=== PATIENT | male | born 1960 | race Caucasian/White ===

== ENCOUNTER 2020-10-21 07:48 | Outpatient (REF) | payer OTHER, SELFPAY ==
[2020-10-21 11:34] LABS: Estimated Average Glucose 163 mg/dL; Hemoglobin A1c % 7.3 %
[2020-10-21 11:51] LABS: Creatinine Urine 92.79 mg/dL; Microalbum/Creatinine Ratio Ur 7.5 ug/mg cr
[2020-10-21 12:14] LABS: Alanine Aminotransferase 27 U/L (0-40); Albumin Level 4.2 g/dL (3.5-5.0); Alkaline Phosphatase 40 U/L (39-117); Anion Gap 12 (12-20); Aspartate Amino Transferase 17 U/L (5-37); Bilirubin Total 0.8 mg/dL (0.0-1.0); Blood Urea Nitrogen 16 mg/dL (9-16); Calcium 8.8 mg/dL (8.4-10.2); Carbon Dioxide 27 mmol/L (22-29); Chloride 102 mmol/L (96-108); Cholesterol 128 mg/dL; Estimated Glomerular Filt Rate > 60; Glucose Fasting 156 mg/dL (60-99); HDL Cholesterol 53 mg/dL; LDL Cholesterol Calculated 61 mg/dl; Sodium 137 mmol/L (135-145); Total Protein 6.4 g/dL (6.5-8.0); Triglycerides 74 mg/dL
== END 2020-10-21 07:49 | disposition home or self-care (01) ==
LOC: HO.MANLDS 07:48
PROVIDERS: PCP Internal Medicine; Visit Provider Internal Medicine
DX: E11.9 Type 2 diabetes mellitus without complications (principal)
CPT/HCPCS: 36415; 80053; 80061; 82043; 83036

== ENCOUNTER 2021-01-31 08:28 | Outpatient (REF) | payer OTHER, SELFPAY ==
[2021-01-31 11:23] LABS: Estimated Average Glucose 157 mg/dL; Hemoglobin A1c % 7.1 %
== END 2021-01-31 08:29 | disposition home or self-care (01) ==
LOC: HO.MANLDS 08:28
PROVIDERS: PCP Internal Medicine; Visit Provider Internal Medicine
DX: E11.9 Type 2 diabetes mellitus without complications (principal)
CPT/HCPCS: 36415; 83036

== ENCOUNTER 2021-05-06 09:02 | Outpatient (REF) | payer OTHER, SELFPAY ==
[2021-05-06 11:15] LABS: Estimated Average Glucose 154 mg/dL
== END 2021-05-06 09:03 | disposition home or self-care (01) ==
LOC: HO.MANLDS 09:02
PROVIDERS: PCP Internal Medicine; Visit Provider Internal Medicine
DX: E11.9 Type 2 diabetes mellitus without complications (principal)
CPT/HCPCS: 36415; 83036

== ENCOUNTER 2021-11-10 08:16 | Outpatient (REF) | payer OTHER, SELFPAY ==
[2021-11-10 11:20] LABS: Cholesterol 114 mg/dL; Estimated Average Glucose 151 mg/dL; HDL Cholesterol 42 mg/dL; Hemoglobin A1c % 6.9 %; LDL Cholesterol Calculated 60 mg/dl; Triglycerides 62 mg/dL
[2021-11-10 11:36] LABS: Creatinine Urine 104.24 mg/dL
[2021-11-10 11:38] LABS: Microalbum/Creatinine Ratio Ur 12.4 ug/mg cr
== END 2021-11-10 08:17 | disposition home or self-care (01) ==
LOC: HO.MANLDS 08:16
PROVIDERS: PCP Internal Medicine; Visit Provider Internal Medicine
DX: E11.9 Type 2 diabetes mellitus without complications (principal)
CPT/HCPCS: 36415; 80061; 82043; 83036

== ENCOUNTER 2022-05-15 08:15 | Outpatient (REF) | payer OTHER, SELFPAY ==
[2022-05-15 11:57] LABS: Estimated Average Glucose 140 mg/dL; Hemoglobin A1c % 6.5 %
[2022-05-15 12:14] LABS: Alanine Aminotransferase 20 U/L (0-40); Albumin Level 4.2 g/dL (3.5-5.0); Alkaline Phosphatase 58 U/L (39-117); Anion Gap 15 (12-20); Aspartate Amino Transferase 19 U/L (5-37); Bilirubin Total 0.9 mg/dL (0.0-1.0); Blood Urea Nitrogen 11 mg/dL (9-16); Calcium 9.2 mg/dL (8.4-10.2); Carbon Dioxide 25 mmol/L (22-29); Chloride 104 mmol/L (96-108); Cholesterol 113 mg/dL; Estimated Glomerular Filt Rate > 60; Glucose Random 124 mg/dL (60-115); HDL Cholesterol 36 mg/dL; LDL Cholesterol Calculated 67 mg/dl; Potassium 4.3 mmol/L (3.3-5.1); Sodium 140 mmol/L (135-145); Total Protein 6.9 g/dL (6.5-8.0); Triglycerides 51 mg/dL
[2022-05-15 12:53] LABS: Creatinine Urine 95.01 mg/dL; Microalbum/Creatinine Ratio Ur 9.4 ug/mg cr
== END 2022-05-15 08:16 | disposition home or self-care (01) ==
LOC: HO.MANLDS 08:15
PROVIDERS: Visit Provider Internal Medicine
DX: E11.9 Type 2 diabetes mellitus without complications (principal)
CPT/HCPCS: 36415; 80053; 80061; 82043; 83036

== ENCOUNTER 2022-11-16 08:28 | Outpatient (REF) | payer OTHER, SELFPAY ==
[2022-11-16 11:52] LABS: Estimated Average Glucose 146 mg/dL; Hemoglobin A1c % 6.7 %
== END 2022-11-16 08:29 | disposition home or self-care (01) ==
LOC: HO.MANLDS 08:28
PROVIDERS: Visit Provider Internal Medicine
DX: E11.9 Type 2 diabetes mellitus without complications (principal)
CPT/HCPCS: 36415; 83036

== ENCOUNTER 2024-09-13 10:28 | Outpatient (REF) | payer OTHER, SELFPAY ==
--- OUTSIDE RECORDS SUMMARY | 2024-09-13 12:24 | XMS_ITS | Data Portability ---
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 REVIEW OF PRIOR EXTERNAL NOTES/RESULTS, ORDERING OF TEST(S) CATEGORY 2. 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) MDM MODERATE MUST MEET 2 OUT OF 3 ELEMENTS: PROBLEMS, DATA OR RISK ELEMENT 1: PROBLEMS ADDRESSED 1 OR MORE CHRONIC ILLNESS WITH EXACERBATION OR 2 OR MORE STABLE CHRONIC ILLNESSES OR 1 UNDIAGNOSED NEW PROBLEM OR 1 ACUTE ILLNESS W/SYMPTOMS OR 1 ACUTE COMPLICATED INJURY ELEMENT 2: DATA MUST MEET 1 OF 3 CATEGORIES CATEGORY 1: REVIEW OF PRIOR EXTERNAL NOTES, REVIEW OF RESULTS, ORDERING OF EACH TEST, ASSESSMENT REQUIRING INDEPENDENT HISTORIAN OR CATEGORY 2: INDEPENDENT INTERPRETATION OF TESTS BY ANOTHER PHYSICIAN OR SPECIALIST OR CATEGORY 3: DISCUSSION OF MGT OR TEST INTERPRETATION W/EXTERNAL PHYSICIAN OR SPECIALIST ELEMENT 3: RISK RISK OF COMPLICATIONS AND/OR MORBIDITY OR MORTALITY OF PATIENT MANAGEMENT PROVIDER MUST THOROUGHLY DOCUMENT EACH ELEMENT THAT IS COVERED Not available 01/22/2023 16:45:09 04/30/2023 04/30/2023 [id number] [place] [id number]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) MDM MODERATE MUST MEET 2 OUT OF 3 ELEMENTS: PROBLEMS, DATA OR RISK ELEMENT 1: PROBLEMS ADDRESSED 1 OR MORE CHRONIC ILLNESS WITH EXACERBATION OR 2 OR MORE STABLE CHRONIC ILLNESSES OR 1 UNDIAGNOSED NEW PROBLEM OR 1 ACUTE ILLNESS W/SYMPTOMS OR 1 ACUTE COMPLICATED INJURY ELEMENT 2: DATA MUST MEET 1 OF 3 CATEGORIES CATEGORY 1: REVIEW OF PRIOR EXTERNAL NOTES, REVIEW OF RESULTS, ORDERING OF EACH TEST, ASSESSMENT REQUIRING INDEPENDENT HISTORIAN OR CATEGORY 2: INDEPENDENT INTERPRETATION OF TESTS BY ANOTHER PHYSICIAN OR SPECIALIST OR CATEGORY 3: DISCUSSION OF MGT OR TEST INTERPRETATION W/EXTERNAL PHYSICIAN OR SPECIALIST ELEMENT 3: RISK RISK OF COMPLICATIONS AND/OR MORBIDITY OR MORTALITY OF PATIENT MANAGEMENT PROVIDER MUST THOROUGHLY DOCUMENT EACH ELEMENT THAT IS COVERED Not available 04/30/2023 10:05:00 06/11/2023 06/11/2023 [id number] [place] [id number]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) MDM MODERATE MUST MEET 2 OUT OF 3 ELEMENTS: PROBLEMS, DATA OR RISK ELEMENT 1: PROBLEMS ADDRESSED 1 OR MORE CHRONIC ILLNESS WITH EXACERBATION OR 2 OR MORE STABLE CHRONIC ILLNESSES OR 1 UNDIAGNOSED NEW PROBLEM OR 1 ACUTE ILLNESS W/SYMPTOMS OR 1 ACUTE COMPLICATED INJURY ELEMENT 2: DATA MUST MEET 1 OF 3 CATEGORIES CATEGORY 1: REVIEW OF PRIOR EXTERNAL NOTES, REVIEW OF RESULTS, ORDERING OF EACH TEST, ASSESSMENT REQUIRING INDEPENDENT HISTORIAN OR CATEGORY 2: INDEPENDENT INTERPRETATION OF TESTS BY ANOTHER PHYSICIAN OR SPECIALIST OR CATEGORY 3: DISCUSSION OF MGT OR TEST INTERPRETATION W/EXTERNAL PHYSICIAN OR SPECIALIST ELEMENT 3: RISK RISK OF COMPLICATIONS AND/OR MORBIDITY OR MORTALITY OF PATIENT MANAGEMENT PROVIDER MUST THOROUGHLY DOCUMENT EACH ELEMENT THAT IS COVERED Not available 06/11/2023 10:06:53 Plan of Treatment Reminders Order Date Submit Date Provider Last Modified By Organization Details Last Modified Time Details Appointments ANNUAL EXAM 2025 11:00A M DR VIZCAINO Not available Not available Not available Lab HbA1c (hemoglob in A1c), blood 2022 023 [facility], [address] [place] [address], [place], [address], 06/24/2023 13:38:06 HbA1c (hemoglob in A1c), blood 2022 024 [facility], [address] [place], [address], 06/24/2023 13:38:06 Referral None recorded. Procedures None recorded. Surgeries None recorded. Imaging US, echocardi ogram 2022 023 [facility], [address] [place] [address], [address], 07/14/2023 13:41:31 exercise stress test 2022 023 [facility], [address] [place] [address], [address], 06/25/2023 08:27:32 CT, heart, w/o contrast, w/ coronary calcium score 2022 023 [email or web address] 10 [facility], [address] [place], [address], 01/29/2023 11:10:14 Medication Orders None recorded. Patient TargetsNo targets recorded. Patient InstructionsNo instructions recorded. Reason for Referral None Reported. Results Created Date Observation Date Name Description Value Unit Range Abnormal Flag Note LastModifiedBy Organization Detail LastModifiedTime 02/13/2002/12/2023 CT, heart , w/o contr ast, w/ coron marylin calci um score No observ ation record ed. [email or web address] [facility] [address] [place], [address], 05/24/2024 09:09:06 12/10/19 24 12/10/2023 US, echoc ardio gram No observ ation record ed. [email or web address] [facility] [address] [place] [address], [address], 12/13/2023 22:51:10 Result Notes None recorded. Problems Name Problem SNOMED Code Status Onset Date Resolution Date Notes Provider Name and Address Organization Details Recorded Time Type 2 diabetes mellitus 96887828 Active 2017 Not Available [facility] 13:49:16 Hyperchol esterolem ia 44258434 Active 2017 Not Available [facility] 1 13:49:16 Closed fracture of right wrist 577404252350 09145 Active 2017 Not Available [facility] 1 13:49:16 Coronary atheroscl erosis 596647380 Active 2022 ESTEFANI OROZCO [address] [place], [address], [facility] 3 14:38:38 Dilatatio n of aorta 04153416 Active 2022 Joshua Vizcaino, DO [address] [place] [address], [address], [facility] 3 10:06:02 Ascending aorta dilatatio n 167499542 Active 2022 Joshua Vizcaino, DO [address] [place] [address], [phone], [facility] 3 10:11:23 Left ventricul ar hypertrop hy 84731142 Active 2017 Not Available [facility] 1 13:49:16 History of polyp of colon 645296439 Active 2017 Not Available [facility] 1 13:49:16 Problem Notes None recorded. Procedures Surgical History Date Name Laterality Status Provider Name and Address Organization Details Recorded Time 03/04/20 18 Colonoscopy completed Joshua Vizcaino DO [address] [place] [address], [phone], [facility] 03/07/2018 08:22:42 Imaging Results Imaging Date Name Status LastModified by Organization Details LastModified Time 02/12/2023 CT, heart, w/o contrast, w/ coronary calcium score completed [email or web address] [facility] [address] [place], [address], 05/24/2024 09:09:06 12/10/2023 US, echocardiogram completed [email or web address] [facility] [address] [facility], [place], [address], 12/13/2023 22:51:10 Procedure Notes None recorded. Medical Equipment None Reported. Allergies Allergen ID Allergen Name Allergen Category Reaction Reaction Severity Criticality Documentation Date Start Date Code Code System Note Provider Name and Address Organization Details Recorded Time 2235 diphenhyd ramine / ibuprofen medicatio n facial swelling mild Not available 03/16/20182016 80762 5 RxNorm Joshua Vizcaino, DO [address] [place], [address], [facility] 8 11:04:06 Medications Name Sig Start Date Stop Date Status Note LastModified by Organization Details LastModified Time Prescriptio n - Prior Authorizati on Request 06/16 completed Not Available Not Available Not Available amoxicillin 500 mg capsule TAKE 4 CAPSULES BY MOUTH 1 HOUR BEFORE DENTAL APPOINTME NT 08/08 completed Not Available Not Available Not Available pioglitazon e 15 mg tablet 06/10 completed Not Available Not Available Not Available atorvastati n 40 mg tablet take 1 tablet by mouth once daily 06/10 completed Per pt 80mg Not Available Not Available Not Available atorvastati n 80 mg tablet TK 1 T PO QD active Not Available Not Available No t Available azithromyci n 250 mg tablet TAKE 2 TABLETS (500 MG) BY ORAL ROUTE ONCE DAILY FOR 1 DAY THEN 1 TABLET (250 MG) BY ORAL ROUTE ONCE DAILY FOR 4 DAYS 06/10 completed Not Available Not Available Not Available glipizide 10 mg tablet take 1 tablet by mouth once daily 06/10 completed Not Available Not Available Not Available pioglitazon e 45 mg tablet 08/14 completed Not Available Not Available Not Available pioglitazon e 30 mg tablet Take 1 tablet every day by oral route for 90 days. active Not Available Not Available No t Available metformin ER 500 mg tablet,exte nded release 24 hr Take 2 tablets twice a day by oral route for 90 days. active Not Available Not Available No t Available amoxicillin 875 mg-potassiu m clavulanate 125 mg tablet 11/24 completed Not Available Not Available Not Available oxycodone 5 mg tablet 11/24 completed Not Available Not Available Not Available Aspir-81 active Not Available Not Avai lable Not Available metformin 250mg bid 06/10 completed Not Available Not Available Not Available Probiotic qd active Not Available Not Monica ilable Not Available Invokana 300 mg tablet 02/06 completed Not Available Not Available Not Available Jardiance 10 mg tablet 06/10 completed Not Available Not Available Not Available Jardiance 25 mg tablet TAKE 1 TABLET BY MOUTH ONCE DAILY active Not Available Not Available No t Available Jardiance 40 mg qd 06/10 completed Not Available Not Available Not Available Fluarix Quad (PF) 60 mcg (15 mcg x 4)/0.5 mL IM syringe 03/16 completed Not Available Not Available Not Available Shingrix (PF) 50 mcg/0.5 mL intramuscul ar suspension, kit 06/10 completed Not Available Not Available Not Available Afluria Qd (36 mos up)(PF)60 mcg (15 mcg x4)/0.5 mL IM syringe 06/10 completed Not Available Not Available Not Available Fluarix Quad (PF) 60 mcg (15 mcg x 4)/0.5 mL IM syringe ADM 0.5ML IM UTD 06/10 completed Not Available Not Available Not Available Trulicity 3 mg/0.5 mL subcutaneou s pen injector Inject 0.5 mL every week by subcutane ous route. active Not Available Not Available No t Available Vitals Date Recorded Body height Body mass index (BMI) Body weight Oxygen saturation Oxygen saturation in Arterial blood by Pulse oximetry Heart rate Systolic blood pressure Diastolic blood pressure Provider Name and Address Organization Details Last Updated DateTime 3 182.88 cm 28.9 kg/m2 03664.1 7 g 98 % 98 % 68 /min 154 mm[Hg] 80 mm[Hg] Kisha Motta [facility] 3 16:13:59 Date Recorded Body height Body mass index (BMI) Body weight Heart rate Oxygen saturation Oxygen saturation in Arterial blood by Pulse oximetry Systolic blood pressure Diastolic blood pressure Provider Name and Address Organization Details Last Updated DateTime 3 182.88 cm 26.9 kg/m2 41261.2 9 g 73 /min 99 % 99 % 130 mm[Hg] 68 mm[Hg] Tali Mckeon [facility] 3 09:50:39 Date Recorded Body height Body mass index (BMI) Body weight Heart rate Oxygen saturation Oxygen saturation in Arterial blood by Pulse oximetry Systolic blood pressure Diastolic blood pressure Provider Name and Address Organization Details Last Updated DateTime 3 182.88 cm 26.4 kg/m2 05618.5 1 g 73 /min 98 % 98 % 142 mm[Hg] 81 mm[Hg] Tali Mckeon [facility] 3 09:48:28 Date Recorded Body height Body mass index (BMI) Body weight Heart rate Oxygen saturation Oxygen saturation in Arterial blood by Pulse oximetry Systolic blood pressure Diastolic blood pressure Provider Name and Address Organization Details Last Updated DateTime 5 182.88 cm 26.4 kg/m2 59462.5 1 g 83 /min 98 % 98 % 120 mm[Hg] 64 mm[Hg] Joshua Vizcaino, DO [address] [place], [address], [facility] 5 14:04:55 Social History Question Answer Notes LastModified by Organizat ion Details LastModified Time Tobacco Smoking Status Never Smoker Not Available [facility] 05/14/2020 03:36:24 What Was The Date Of Your Most Recent Tobacco Screening? 06/11/2023 [email or web address] Information not available 06/11/2023 Do You Or Have You Ever Used Any Other Forms Of Tobacco Or Nicotine? No [email or web address] Information not available 06/11/2023 Sex: Unknown Functional Status None recorded. Mental Status None recorded. Family History Nothing Reported. Medical History No medical history recorded. Immunizations Vaccine Type Date Status Note Provider Nam e and Address Organization Details Recorded Time Influenza, split virus, quadrivalent, preservative 8 completed Not Available [facility] 06/30/2023 12:47:47 Influenza, split virus, quadrivalent, preservative 1 completed Not Available [facility] 06/30/2023 12:47:47 Tdap 1 completed Not Available [facility] 06/30/2023 12:47:47 Tdap 1 completed Not Available [facility] 06/30/2023 12:47:47 zoster live 9 completed Not Available [facility] 06/30/[facility]23 12:47:47 zoster live 9 completed Not Available [facility] 06/30/2023 12:47:47 Influenza, split virus, quadrivalent, preservative 0 completed Not Available [facility] 06/30/2023 12:47:47 Past Encounters Encounter ID Performer Location Encounter Start Date Encounter Closed Date Diagnosis/Indication Diagnosis SNOMED-CT Code Diagnosis ICD10 Code Diagnosis Note [id number] Joshua Vizcaino [facility] [address] [facility] [place] [address] 11/24/2017 09:13:33 11/24/2017 13:43:42 Hypercholesterolemia 41352950 E78.00 check next visit Type 2 amira betes mellitus 98914961 E11.9 last a1c is 7.4 which is stable for him Hypertroph ic cardiomegaly 896186537 I51.7 needs us Tubular ad enoma of colon 288135252 D12.6 refer f/u [id number] Joshua Vizcaino [facility] [address] [facility],[place] [address] 03/16/2018 10:08:44 03/16/2018 12:00:24 Hypercholesterolemia 55703238 E78.00 here and doing ok with atorvastat in Type 2 amira betes mellitus 09126823 E11.9 last a1c is 7.4 which is stable for him History of polyp of colon 515660342 Z86.010 [place] [id number] Joshua Vizcaino [facility] [address] [facility],[place] [address] 08/05/2018 13:29:13 08/05/2018 13:57:20 Type 2 diabetes mellitus 31921770 E11.9 last a1c is 8.1 which is stable for him Hypercholesterolemia 136 35274 E78.00 here and doing ok with atorvastat in as noted in past Increased blood pressure 97900119 R03.0 will rechk at home and will keep updated [id number] Joshua Vizcaino [facility] [address] [facility],[place] [employer] [place] [address] 12/30/2018 11:56:21 12/30/2018 13:40:39 Type 2 diabetes mellitus 23124375 E11.9 last a1c is 8.6 (8.1) and he actually has been eating well and keeping wgt off and exercising 4x week will stop the glypizide and will try to get him something diff,(he did not respond to meformin will try invokana or glimep) will also ask to have him see endocrine and find out what we are missing in terms of elevated glucoses. Hypercholesterolemia 136 79991 E78.00 here and doing ok with atorvastat in as noted in past [id number] October JERAD Woodward [facility] [address] [facility] [address],[place] [address] 06/16/2019 09:23:21 06/16/2019 09:43:07 Acute sinusitis 95637331 J01.90 Type 2 amira betes mellitus 02794740 E11.65 has f/u next week Hypercholesterolemia 136 51197 E78.00 has f/u next week [id number] Joshua Vizcaino [facility] [address] [facility] [address],[place] [address] 06/10/2020 15:10:12 06/10/2020 16:18:01 Active or passive immunization 170818679 Z23 discussed Adult [facility] th examination 633990354 Z00.00 Hepatitis C screening 41 0816269 Z11.59 [id number] Joshua Vizcaino [facility] [address] [facility] [address],[place] [address] 08/14/2022 08:27:28 08/14/2022 10:55:38 Type 2 diabetes mellitus 77610589 E11.9 last a1c is 7.5 he was 6.9 and he actually has been eating well and keeping wgt off and exercising 4x weekhe will get better with diet as this is his problem with sweetsrela yobani that he is now going to be more careful so no change in meds right nowrechk in 3 mo [id number] Joshua Vizcaino [facility] [address] [facility] [address],[place] [address] 01/22/2023 15:56:19 01/22/2023 16:48:13 Type 2 diabetes mellitus 48273634 E11.9 last a1c is 7.5 he was 6.9 and he actually has been eating well and keeping wgt off and exercising 4x weekhe will get better with diet as this is his problem with sweetsrela yobani that he is now going to be more careful so no change in meds right nowrechk in 3 mo Hypercholesterolemia 136 87579 E78.00 here and doing ok with atorvastat in as noted in past [id number] Joshua Vizcaino DO [facility] [address] [facility],[place] [employer] [place] [address] 04/30/2023 09:45:07 04/30/2023 10:15:19 Coronary atherosclerosis 812001362 I25.[address] input next month i am wondering if he will need a heart cath given his co morbidity illnesses / Hypercholesterolemia 136 13775 E78.00 here and doing ok with atorvastat in as noted in past Type 2 amira betes mellitus 83875858 E11.9 last a1c is 6.7 but he has not gotten any lab for today he was 6.9 and he actually has been eating well and keeping wgt off and exercising 4x weekhe will get better with diet as this is his problem with sweetsrela yobani that he is now going to be more careful so no change in meds right nowreck in 3 mo relates sugars are good for the meds that he is on Dilatation of aorta 2666 0001 I77.819 await input from cardiology otherwise will repeat echo in 1 year [id number] DO Mookie Romo [facility] [address] [facility],[place] [employer] [address] 06/11/2023 09:42:36 06/11/2023 14:10:19 Type 2 diabetes mellitus 00358587 E11.9 last a1c is 6.7 and gets done thru endocrine PRIOR: last a1c is 6.7 but he has not gotten any lab for today he was 6.9 and he actually has been eating well and keeping wgt off and exercising 4x weekhe will get better with diet as this is his problem with sweetsrela yobani that he is now going to be more careful so no change in meds right nowrechk in 3 mo relates sugars are good for the meds that he is on Hypercholesterolemia 136 82438 E78.00 here and doing ok with atorvastat in as noted in past Coronary atherosclerosis 184535982 I25.[address] input next month i am wondering if he will need a ett for morbidity illnesses / Ascending aorta dilatation 043703071 I77.810 was 3.8 in 2018 [id number] DO Mookie Romo [facility] [address] [facility] [address],[place] [address] 08/08/2024 13:54:38 08/08/2024 15:00:26 Hypercholesterolemia 41790695 E78.00 here and doing ok with atorvastat in as noted in past Type 2 amira betes mellitus 85292372 E11.9 last a1c is 6.7 and gets done thru endocrine PRIOR: last a1c is 6.7 but he has not gotten any lab for today he was 6.9 and he actually has been eating well and keeping wgt off and exercising 4x weekhe will get better with diet as this is his problem with sweetsrela yobani that he is now going to be more careful so no change in meds right nowrechk in 3 mo relates sugars are good for the meds that he is on Health Concerns Section Related Observation LastModified by Organization Detai ls LastModified Time None Recorded Concern Status LastModified by Organization Details LastModified Time None Recorded Advance Directives Directive None Recorded Payers Encounter Date Sequence Insurance Name Policy Number Policy Rajput Covered Member ID Rajput Member ID Guarantor Name 08/14/2022 1 [facility] [id number] Soniya Wray [id number] Milton Wray 01/22/2023 1 [facility] Milton Wray [id number] Milton Wray 04/30/2023 1 [facility] Milton Wray [id number] Milton Wray 06/11/2023 1 [facility] Milton Wray [id number] Milton Wray 08/08/2024 1 [facility] [employer] - DIRECT CONNECTORCARE TYPE I (HMO) [id number] Soniya Wray [id number] Milton Wray Notes Date Note Type Note Provider Name a nd Address Organization Details Recorded Time 3 text/html Diabetes F/UReported bypatient.Context:nor mal range of home blood sugars (in the low 100s); seeing eye doctor regularly; checking feet regularly Associated Symptoms:no weight gain; no weight loss; no dizziness; no sweats; no headaches; no confusion; no increased thirst; no increased appetite; no increased urination; no blurred vision; no numbness of feet; no calluses on feet patient is evaluated via tele/video assessment per patient consentduring current pandemichas lost 55lbshere for rechk of glucosehas his a1c up to 7.5 and has a sweet tooth eating desserts all day longrelates this is the reason Joshua Vizcaino DO [address] [place] [address], [address], [facility] 08/14/2022 09:21:40 3 text/html here for rechk and is doing very wellstates has lost 65 lbs and feels goodlast 6.7 followed by endocrine Joshua Vizcaino DO [address] [place], [address], [facility] 01/22/2023 16:45:56 3 text/html Care Management - DiabetesReported bypatient.Self Care:seeing eye doctor yearly for dilated eye exam; checking feet regularly; normal range of home blood sugars (in the low 100s); no side effects from medications Associated Symptoms:symptoms are usually well controlled; no fatigue; no dizziness; no excessive sweating; no headaches; no confusion; no increased thirst; no increased appetite; no increased urination; no blurred vision; no numbness of feet; no calluses on feet here for his rechkdoing ok kept weight offdenied any cp no sobno major issues overalldiscussed the ct heart and this showed very significant ds and lory in LAD Joshua Vizcaino DO [address] [place], [address], [facility] 04/30/2023 10:08:54 3 text/html Care Management - DiabetesReported bypatient.Self Care:seeing eye doctor yearly for dilated eye exam; checking feet regularly; normal range of home blood sugars (in the low 100s); no side effects from medications Associated Symptoms:symptoms are usually well controlled; no fatigue; no dizziness; no excessive sweating; no headaches; no confusion; no increased thirst; no increased appetite; no increased urination; no blurred vision; no numbness of feet; no calluses on feet here for rechk a nd is doing goodrelates that he is very active and exercises on the bikedoing well with his right hiphas been seen by dr beaver the vp construction who told him that he can watch and wait or get ett relates that this has not been ordered and has been waiting for 3 weeks Joshua Vizcaino DO [address] [place], [address], [facility] 06/11/2023 10:30:57 5 text/html Care Management - DiabetesReported bypatient.Self Care:seeing eye doctor yearly for dilated eye exam; checking feet regularly; normal range of home blood sugars (in the low 100s); no side effects from medications Associated Symptoms:symptoms are usually well controlled; no fatigue; no dizziness; no excessive sweating; no headaches; no confusion; no increased thirst; no increased appetite; no increased urination; no blurred vision; no numbness of feet; no calluses on feet here for cpe doing ok overall has been being careful with his diet etclast a1c 7.2 Joshua Vizcaino DO [address] [place], [id number], [facility] 08/08/2024 14:34:15
[2024-09-13 13:49] LABS: Estimated Average Glucose 126 mg/dL; Hemoglobin A1C 170.9189 umol/L; Total Hemoglobin (HGBA1C) 4017.6463 umol/L
== END 2024-09-13 10:29 | disposition home or self-care (01) ==
LOC: HO.MANLDS 10:28
PROVIDERS: Visit Provider Internal Medicine
DX: E11.9 Type 2 diabetes mellitus without complications (principal)
CPT/HCPCS: 36415; 83036